=== PATIENT | male | born 1950 | race Two or more races ===

== ENCOUNTER → 2016-10-30 | Outpatient (CLI) | payer OTHER ==
[2016-10-30 14:56] LABS: HEMOGLOBIN A1C 7.21 % (4.2-6.0)
[2016-10-30 16:30] LABS: CREATININE, URINE 155.3 MG/DL (15-500)
== END ==
LOC: LAB 08:25
PROVIDERS: ATTEND Internal Medicine
DX: E11.9 Type 2 diabetes mellitus without complications (principal); Z79.4 Long term (current) use of insulin
CPT/HCPCS: 82043; 83036